=== PATIENT | female | born 1965 | race American Indian/Alaskan Native ===

== ENCOUNTER 2020-09-26 23:05 | Emergency (ER) | payer OTHER, SELFPAY ==
[2020-09-26 23:49] LABS: Basophils # (Auto) 0.1 K/mm3 (0.0-0.1); Basophils % (Auto) 0.5 % (0.0-1.8); Eosinophils % (Auto) 0.4 % (0.0-4.3); Hematocrit 38.6 % (30.3-42.9); Hemoglobin 13.4 gm/dl (10.1-14.3); Lymphocytes # (Auto) 1.4 K/mm3 (1.2-5.4); Lymphocytes % (Auto) 12.4 % (13.4-35.0); Mean Corpuscular HGB Conc 35 % (30-34); Mean Corpuscular Volume 86 fl (79-97); Monocytes # (Auto) 0.5 K/mm3 (0.0-0.8); Monocytes % (Auto) 4.7 % (0.0-7.3); Platelet Count 311 K/mm3 (140-440); Red Blood Count 4.52 M/mm3 (3.65-5.03); Red Cell Distribution Width 13.6 % (13.2-15.2)
[2020-09-27 00:11] LABS: Blood Urea Nitrogen 17 mg/dL (7-17); Calcium 9.9 mg/dL (8.4-10.2); Hemolysis Index 3
[2020-09-27 00:12] LABS: BUN/Creatinine Ratio 24
--- NOTE | 2020-09-27 04:30 | Emergency Department Report ---
ED Psych HPI - General Chief Complaint: Psych Stated Complaint: MH Time Seen by Provider: 09/27/20 04:22 Source: patient, EMS Mode of arrival: Stretcher - History of Present Illness Initial Comments: Patient is a 54-year-old female that presents emergency room with complaints of suicidal ideation to cope with depression. Patient states she been feeling suicidal for a couple months. Patient states the symptoms are worsening. Patient starts becoming more frequently. Patient states her plan is to overdose. Patient states today she took an extra dose of an edible THC with hopes of going to sleep and not waking up. Patient states has been having this thoughts for a while and today she finally made an attempt with her edible THC. Patient states she is also thought about taking some extra psych medications. Patient states manner a lot of pressure and stress. Patient states her psych health has been deteriorating. Patient denies recent travel. Patient denies recent international travel. Patient denies exposure to the novel coronavirus. Patient denies sick contacts. Patient denies fever and chills. Patient denies cough. Patient denies diarrhea. Patient denies coming in contact with anybody with symptoms of the novel coronavirus. MD Complaint: suicidal ideation, feels depressed -: Gradual Associated Psychiatric Symptoms: depression, suicidal ideation History of same: Yes Quality: constant Improves With: none Worsens With: none Context: significant life stressor If Self Harm: admits thoughts of, has plan, has acted on plan, intentional overdose - Related Data Home Medications Medication Instructions Recorded Confirmed Last Taken FLUoxetine HCL [PROzac] 80 mg PO QDAY 09/27/20 09/27/20 Unknown Losartan Potassium 100 mg PO DAILY 09/27/20 09/27/20 Unknown OXcarbazepine [Trileptal] 600 mg PO BID 09/27/20 09/27/20 Unknown Potassium Chloride [K-Dur] 40 meq PO QDAY 09/27/20 09/27/20 Unknown Zolpidem Tartrate [Ambien CR] 12.5 mg PO QHS 09/27/20 09/27/20 Unknown clonazePAM [Klonopin] 1 mg PO DAILY PRN 09/27/20 09/27/20 Unknown Allergies Allergy/AdvReac Type Severity Reaction Status Date / Time orange Allergy Hives Verified 09/27/20 05:35 Sulfa (Sulfonamide Allergy Hives Verified 09/26/20 23:18 Antibiotics) ED Review of Systems ROS: Stated complaint: MH Other details as noted in HPI Constitutional: denies: chills, fever Eyes: denies: eye pain, eye discharge, vision change ENT: denies: ear pain, throat pain Respiratory: denies: cough, shortness of breath, wheezing Cardiovascular: denies: chest pain, palpitations Endocrine: no symptoms reported Gastrointestinal: denies: abdominal pain, nausea, diarrhea Genitourinary: denies: urgency, dysuria, discharge Musculoskeletal: denies: back pain, joint swelling, arthralgia Skin: denies: rash, lesions Neurological: denies: headache, weakness, paresthesias Psychiatric: as per HPI, depression, suicidal thoughts. denies: anxiety Hematological/Lymphatic: denies: easy bleeding, easy bruising ED Past Medical Hx - Past Medical History Previous Medical History?: Yes Hx Psychiatric Treatment: Yes (Bipolar, PTSD, Anxiety) - Surgical History Past Surgical History?: Yes Additional Surgical History: Right Kidney - Family History Family history: no significant - Social History Smoking Status: Never Smoker Substance Use Type: Marijuana - Medications Home Medications: Home Medications Medication Instructions Recorded Confirmed Last Taken Type FLUoxetine HCL [PROzac] 80 mg PO QDAY 09/27/20 09/27/20 Unknown History Losartan Potassium 100 mg PO DAILY 09/27/20 09/27/20 Unknown History OXcarbazepine [Trileptal] 600 mg PO BID 09/27/20 09/27/20 Unknown History Potassium Chloride [K-Dur] 40 meq PO QDAY 09/27/20 09/27/20 Unknown History Zolpidem Tartrate [Ambien CR] 12.5 mg PO QHS 09/27/20 09/27/20 Unknown History clonazePAM [Klonopin] 1 mg PO DAILY PRN 09/27/20 09/27/20 Unknown History ED Physical Exam - General Limitations: No Limitations General appearance: alert, in no apparent distress - Head Head exam: Present: atraumatic, normocephalic - Eye Eye exam: Present: normal appearance - ENT ENT exam: Present: mucous membranes moist - Neck Neck exam: Present: normal inspection - Respiratory Respiratory exam: Present: normal lung sounds bilaterally. Absent: respiratory distress, wheezes, rales - Cardiovascular Cardiovascular Exam: Present: regular rate, normal rhythm. Absent: systolic murmur, diastolic murmur, rubs, gallop - GI/Abdominal GI/Abdominal exam: Present: soft, normal bowel sounds - Extremities Exam Extremities exam: Present: normal inspection - Back Exam Back exam: Present: normal inspection - Neurological Exam Neurological exam: Present: alert, oriented X3 - Psychiatric Psychiatric exam: Present: depressed, suicidal ideation - Skin Skin exam: Present: warm, dry, intact, normal color. Absent: rash ED Course Vital Signs 09/26/20 09/27/20 09/27/20 23:08 04:18 09:11 Temperature 98 F 97.9 F Pulse Rate 95 H 79 Respiratory 18 18 20 Rate Blood Pressure 114/89 Blood Pressure 133/84 [Right] O2 Sat by Pulse 98 100 96 Oximetry 09/27/20 09/28/20 09/28/20 20:19 02:00 08:39 Temperature 98.9 F 98.6 F 97.9 F Pulse Rate 75 80 69 Respiratory 18 18 18 Rate Blood Pressure Blood Pressure 160/82 125/58 145/84 [Right] O2 Sat by Pulse 95 96 96 Oximetry 09/28/20 13:16 Temperature Pulse Rate Respiratory 17 Rate Blood Pressure Blood Pressure [Right] O2 Sat by Pulse Oximetry - Reevaluation(s) Reevaluation #1: Initial evaluation done. Patient placed on a 1013 and ER hold. 09/27/20 04:32 Reevaluation #2: Patient is medically cleared. Patient's final disposition will come from our psychiatry team. 09/27/20 05:43 ED Medical Decision Making - Lab Data Result diagrams: 09/26/20 23:24 09/26/20 23:24 - Medical Decision Making Patient is a 54 plaints of depression, suicidal ideation. Patient states she had a suicide attempt by taking extra THC Gummies. Patient states she also had thoughts of using her psychiatric medications to overdose. After initial valuation, the patient was placed on 1013 and ER hold. Patient had labs done which were essentially unremarkable. Patient's UDS was positive. Patient is medically cleared. Patient's final disposition will come from our psychiatry team and our mental health team. Patient will remain in the ER until the patient is cleared by psychiatry. - Differential Diagnosis Suicidal ideation, suicide attempt, depression, Critical care attestation.: If time is entered above; I have spent that time in minutes in the direct care of this critically ill patient, excluding procedure time. ED Disposition Clinical Impression: Suicidal ideation, Suicide attempt Disposition: [id number] PSY HOSP/PSY UNIT Is pt being admited?: No Does the pt Need Aspirin: No Condition: Stable Time of Disposition: 05:45
[2020-09-27 05:14] LABS: Bilirubin,Urine NEG (Negative); Blood,Urine NEG (Negative); Color,Urine Yellow (Yellow); Mucus,Urine FEW /HPF; Protein,Urine <15 mg/dL mg/dL (Negative); RBC,Urine < 1.0 /HPF (0.0-6.0); Urobilinogen,Urine < 2.0 mg/dL (<2.0)
[2020-09-27 05:22] LABS: Amphetamine Screen,Urine PRESUMPTIVE NEGATIVE; Benzodiazepines Screen,Urine PRESUMPTIVE POSITIVE; Cannabinoid Screen,Urine PRESUMPTIVE POSITIVE; Cocaine Screen,Urine PRESUMPTIVE NEGATIVE; Methadone Screen,Urine PRESUMPTIVE NEGATIVE; Opiate Screen,Urine PRESUMPTIVE NEGATIVE
--- NOTE | 2020-09-27 11:05 | Event Note ---
Date: 09/27/20 Patient seen this morning on routine rounding. No issues overnight. Medications have been reconciled.
[2020-09-27] MEDS ORDERED: NON-FORMULARY EACH (Fluoxetine Hcl [Prozac] 40 MG Capsule) PO SCH (11:15)
[2020-09-27] MEDS ORDERED: NON-FORMULARY EACH (Oxcarbazepine [Trileptal] 600 MG Tablet) PO SCH (11:15)
[2020-09-27] MEDS ORDERED: NON-FORMULARY EACH (Losartan Potassium [Losartan Potassium] 100 MG Tablet) PO SCH (11:15)
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
[2020-09-27] MEDS: POTASSIUM CHLORIDE ER 20 MEQ TAB PO SCH (11:52)
[2020-09-27] MEDS: PANTOPRAZOLE 40 MG TAB PO SCH (11:52)
[2020-09-27] MEDS: OXcarbazepine 300 MG TAB PO SCH ×2 (15:08→21:54)
[2020-09-28 08:40] VITALS: BP 145/84
[2020-09-28] MEDS: OXcarbazepine 300 MG TAB PO SCH (09:40)
[2020-09-28] MEDS: POTASSIUM CHLORIDE ER 20 MEQ TAB PO SCH (09:45)
[2020-09-28] MEDS: PANTOPRAZOLE 40 MG TAB PO SCH (09:46)
--- NOTE | 2020-09-28 09:57 | Progress Note ---
Subjective - Reason for Consult Consult date: 09/28/20 Reason for consult: SI - Chief Complaint Chief complaint: The patient was seen today, she verbalizes being very depressed and feeling suicidal. The patient also says she never sleeps and is "tired of not sleeping and everything." She denies hallucinations of any kind. REVIEW OF SYSTEMS Constitutional: Negative for weight loss ENT: Negative for stridor Respiratory: Negative for cough or hemoptysis All other systems reviewed and are negative MENTAL STATUS EXAMINATION General Appearance and Behavior: Age appropriate, good hygiene, wearing appro priate clothes, good eye contact Cooperation: Participating/engaged, but Guarded Psychomotor Behavior: Psychomotor normal Mood: depressed Affect and affective range: irritable, labile Thought Process: illogical Thought Content: hopelessness, helplessness Speech: Normal rate, volume and rythm Intellectual Functioning: Average Suicidal Ideation: SI Homicidal Ideation: Denies HI Impulse Control: Impaired Insight and Judgment: Limited insight and judgment Memory: Normal Attention: Normal Orientation: Alert, oriented Assessment and Plan (1) Bipolar Disorder, Current Episode Depressed Current Visit: Yes Status: Acute Treatment Plan Start Doxepin 10mg po qhs Start Abilify 5mg po daily Risks, benefits and alternatives of medications discussed with the patient, questions answered and consent obtained from patient. PSYCHOTHERAPY: Supportive psychotherapy provided MEDICAL: Per primary team DELIRIUM PRECAUTIONS: Please re-orient patient frequently, keep lights on during the day, and minimize benzodiazepines and opiates as these medications could worsen patient's confusion. 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 Case discussed with Dr. Smith who agrees with current disposition LEGAL STATUS: 1013 FOLLOW-UP: Will follow Thank you for the consult. Please contact with any questions and/or concerns. Mental Status Exam - Vital signs Last Vital Signs Temp 97.9 F 09/28/20 08:39 Pulse 69 09/28/20 08:39 Resp 18 09/28/20 08:39 BP 145/84 09/28/20 08:39 Pulse Ox 96 09/28/20 08:39
[2020-09-28] MEDS ORDERED: ARIPiprazole 5 MG TAB PO SCH (10:00)
[2020-09-28] MEDS ORDERED: LOSARTAN 50 MG TAB PO SCH (10:00)
[2020-09-28] MEDS ORDERED: FLUoxetine 20 MG CAP PO SCH (10:00)
[2020-09-28] MEDS ORDERED: ACETAMINOPHEN 325 MG TAB PO ONE (13:09)
[2020-09-28] MEDS ORDERED: DOXEPIN 10 MG CAP PO SCH (22:00)
== END 2020-09-28 18:50 ==
LOC: ED 23:05
DX: T14.91XA Suicide attempt, initial encounter (principal); F12.90 Cannabis use, unspecified, uncomplicated; F41.9 Anxiety disorder, unspecified; F31.9 Bipolar disorder, unspecified; Z20.822 Contact with and (suspected) exposure to COVID-19; Z88.2 Allergy status to sulfonamides; Z88.8 Allergy status to other drugs, medicaments and biological substances; Z79.899 Other long term (current) drug therapy; Z98.890 Other specified postprocedural states; X83.8XXA Intentional self-harm by other specified means, initial encounter; Y93.89 Activity, other specified; Y92.89 Other specified places as the place of occurrence of the external cause; Y99.8 Other external cause status
CPT/HCPCS: 36415; 80048; 80307; 81001; 84703; 85025; 99285; U0003; 80320; G0480